=== PATIENT | male | born 1960 | race Caucasian/White ===

== ENCOUNTER → 2019-02-12 | Outpatient (CLI) | payer OTHER ==
--- NOTE | 2019-02-12 11:14 | PCVCIMAG ---
APPROVED REPORT Study performed: 02/12/2019 08:40:46 EXAM: Comprehensive 2D, Doppler, and color-flow Echocardiogram Patient Location: Echo lab Status: routine BSA: 2.09 HR: 57 bpmBP: 114/76 mmHg Rhythm: NSR Other Information Study Quality: Adequate Risk Factors: Cardiac Risk Factors: Hyperlipidemia Indications Dyspnea Chest Pain 2D Dimensions IVSd: 11.41 (7-11mm) LVDd: 49.26 mm PWd: 8.99 (7-11mm)Ascending Ao: 29.00 (22-36mm) LVDs: 37.13 (25-40mm) Left Atrium: 40.36 (27-40mm) Aortic Root: 29.26 mm LV Single Plane 4CH: 53.48 % LV Single Plane 2CH: 67.14 % Biplane EF: 61.3 % Volumes Left Atrial Volume (Systole) Single Plane 4CH: 69.28 mLSingle Plane 2CH: 74.29 mL LA ESV Index: 36.00 mL/m2 Aortic Valve AoV Peak Faheem.: 1.40 m/s AO Peak Gr.: 7.85 mmHgLVOT Max P.22 mmHg LVOT Max V: 0.90 m/s Mitral Valve E/A Ratio: 1.6 MV Decel. Time: 234.04 ms MV E Max Faheem.: 0.57 m/s MV A Faheem.: 0.35 m/s IVRT: 121.11 ms Pulmonary Valve PV Peak Faheem.: 1.00 m/sPV Peak Gr.: 4.03 mmHg Pulmonary Vein P Vein S: 0.32 m/sP Vein A: 0.34 m/s P Vein D: 0.41 m/sP Vein A Dur.: 138.4 msec P Vein S/D Ratio: 0.78 Tricuspid Valve TR Peak Faheem.: 2.44 m/s TR Peak Gr.: 23.76 mmHg TV Vmax: 0.50 m/s Left Ventricle The left ventricle is normal size. There is normal LV segmental wall motion. There is normal left ventricular wall thickness. Left ventricular systolic function is low-normal. LVEF is 50-55%. Grade I - abnormal relaxation pattern. Right Ventricle The right ventricle is normal size. The right ventricular systolic function is normal. Atria Left atrium is mildly dilated. Right atrium is mildly dilated. Aortic Valve The aortic valve is normal in structure. No aortic regurgitation is present. There is no aortic valvular stenosis. Mitral Valve The mitral valve is normal in structure. Mild mitral regurgitation. No evidence of mitral valve stenosis. Tricuspid Valve The tricuspid valve is normal in structure. Mild tricuspid regurgitation with PAP of 31 mmHg. Pulmonic Valve The pulmonary valve is normal in structure. Mild pulmonic regurgitation. Great Vessels The aortic root is normal in size. IVC is normal in size and collapses >50% with inspiration. Pericardium There is no pericardial effusion. There is no pleural effusion. <Conclusion> The left ventricle is normal size. There is normal left ventricular wall thickness. Left ventricular systolic function is low-normal. Grade I - abnormal relaxation pattern. The right ventricle is normal size. Left atrium is mildly dilated. The aortic valve is normal in structure. Mild mitral regurgitation. Mild tricuspid regurgitation with PAP of 31 mmHg.
--- NOTE | 2019-02-12 11:17 | PCVCIMAG ---
APPROVED REPORT Study performed: 02/12/2019 09:35:11 Exam: Stress Echocardiogram Indication: Chest pain , Dyspnea , Hyperlipidemia Patient Location: Echo lab Stress Nurse: Leyla Carlton RN Status: routine Ht: 5 ft 11 in HR: 64 bpm BP: 114/76 mmHg Rhythm: NSR Procedure The patient underwent an Exercise Stress Test using the Haroldo Protocol. Blood pressure, heart rate, and EKG were monitored. An Echocardiogram was performed by orthodontic lab technician in four stages in quad fashion. At peak stress, four selected images were obtained and placed side by side with resting images for comparison. Stress Test Details Stress Test: Exercise stress testing was performed using a Haroldo protocol. HR Resting HR: 64 bpmMax Heart Rate (APMHR): 160 bpm Max HR Achieved: 155 bpmTarget HR (85% APMHR): 136 bpm % of APMHR: 96 Recovery HR: 80 bpm HR response to stress: Normal HR response to stress BP Resting BP: 114/76 mmHg Max BP: 174/76 mmHg Recovery BP: 174/76 mmHg BP response to stress: Normal blood pressure response to stress. ECG Resting ECG: Sinus Rhythm Stress ECG: Sinus Rhythm ST Change: Non-ischemic Arrhythmia: rare PACs Recovery ECG: Sinus Rhythm Recovery ST Change: Normal Recovery Arrhythmia: None Clinical Reason for Termination: Maximal effort Stress Symptoms: Dyspnea Exercise duration: 9 min 46 sec Highest Stage Achieved: Stage 4: 4.2 mph at 16% grade. Exercise capacity: 12.5 METs Overall Exercise Capacity for Age: Normal Scale: Active Angina Score: None Pre-Stress Echo The resting Echocardiogram showed normal left ventricular contractility with an estimated Ejection Fraction of about >55%. Normal wall motion in all segments on baseline images. Post-Stress Echo The stress Echocardiogram showed normal left ventricular contractility with an estimated Ejection Fraction of about 65%. Normal augmentation of wall motion in all segments on post stress images. Clinical No clinical or ECG evidence for ischemia. Conclusion Clinical Response: Non-ischemic Exercise Capacity: Average Stress ECG Response: Non-ischemic Stress Echo Images: Non-ischemic The left ventricle is normal in size and wall thickness in both the rest and stress images. Other Information Study Quality: Adequate <Conclusion> The left ventricle is normal in size and wall thickness in both the rest and stress images.
== END | disposition home or self-care (01) ==
LOC: PCVCIMAG 09:03
PROVIDERS: ATTEND Internal Medicine Cardiovascular Disease
DX: I08.8 Other rheumatic multiple valve diseases (principal); R07.89 Other chest pain; R06.00 Dyspnea, unspecified; E78.5 Hyperlipidemia, unspecified
CPT/HCPCS: 93306; 93351